=== PATIENT | female | born 1975 | race Caucasian/White ===

== ENCOUNTER → 2017-11-05 15:53 | Outpatient (CLI) | payer OTHER, SELFPAY ==
[2017-11-09 14:29] LABS: HPV Reflexed? NOT INDICATED
== END ==
PROVIDERS: Visit Provider Obstetrics & Gynecology
DX: Z12.4 Encounter for screening for malignant neoplasm of cervix (principal)
CPT/HCPCS: 88175; G0145

== ENCOUNTER → 2018-11-08 | Outpatient (CLI) | payer OTHER, SELFPAY ==
[2018-11-14 17:32] LABS: HPV Reflexed? NOT INDICATED
== END | disposition home or self-care (01) ==
LOC: LABSPEC 14:35
PROVIDERS: Visit Provider Obstetrics & Gynecology
DX: Z12.4 Encounter for screening for malignant neoplasm of cervix (principal)
CPT/HCPCS: 88175; G0145

== ENCOUNTER → 2019-06-29 08:47 | Outpatient (CLI) | payer OTHER, SELFPAY ==
--- NOTE | 2019-06-29 08:55 | RAD_ITS ---
Procedure: Fluoroscopically guided, dedicated esophagram. INDICATIONS: Dysphagia, reflux, sore throat. TECHNIQUE: The patient easily and readily swallowed effervescent crystals and various density barium contrast. Multiple spot images were obtained during the course of the real-time fluoroscopic exam. The exam is augmented with frontal and lateral cine views of the larynx/pharynx region. FINDINGS: Esophageal motility appears normal. There is no esophageal stricture, web, diverticulum or hiatal hernia. No free reflux was observed during the course of the real-time exam. The esophageal mucosal pattern appears normal. There is no intrinsic or extrinsic esophageal mass or mass effect. There is symmetric transit of the contrast bolus throughout the pharynx and hypopharynx. Small amount of residual pooling is seen in bilateral performed recesses with spontaneous clearing. The mucosal pattern appears unremarkable. There is no vestibular penetration or aspiration. RAD/Esophagus Only IMPRESSION: No fluoroscopically evident pathology. Electronically Signed: Zelalem Alvarado MD at 9:56 EST , Service support ,
== END ==
PROVIDERS: Family Provider Family Medicine; PCP Family Medicine; Referring Provider Otolaryngology Otolaryngology/Facial Plastic Surgery; Visit Provider Otolaryngology Otolaryngology/Facial Plastic Surgery
DX: R13.10 Dysphagia, unspecified (principal)
CPT/HCPCS: 74220

== ENCOUNTER → 2019-11-15 16:18 | Outpatient (CLI) | payer OTHER, SELFPAY ==
[2019-11-19 01:13] LABS: HPV Reflexed? NOT INDICATED
== END ==
PROVIDERS: PCP Family Medicine; Visit Provider Obstetrics & Gynecology
DX: Z12.4 Encounter for screening for malignant neoplasm of cervix (principal)
CPT/HCPCS: 88175; G0145

== ENCOUNTER → 2020-12-03 | Outpatient (CLI) | payer OTHER, SELFPAY ==
--- NOTE | 2020-12-03 15:30 | CER_PTH ---
PATIENT: MARA VEGA LOC: [facility] U#:[id number] AGE/SX: 45/F ROOM: RE12/03/[address]: Dr. Arnold Mancia MD : 1975 BED: DIS: 12/03/2020 SPEC #: [id number] RECD: 12/04/20 09:50 STATUS: JORDANA BABINConcepcion #: [id number] POP: 12/03/20 15:[address]: Arnold Mancia DEPT: SURGICAL PATHOLOGY RECD BY: Jerry Melgoza ENTERED: 12/04/20 10:05 SP TYPE: CERV OTHR DR: Dr. Bartolo Coronel MD Tissues: Uterine cervix, NOS Procedures: Surgery Specimen Level IV HEADER OPERATION: Cervical lesion removal 4 o?clock PRE-OP DIAGNOSIS: M99.81 TISSUE SUBMITTED: Cervical lesion 4 o?clock MICROSCOPIC DIAGNOSIS Cervical lesion, 4 o?clock, biopsy: Fragments of squamous epithelium with extensive hyperkeratosis. Negative for malignancy. See comment. SJ:bull 12/05/2020 COMMENT Clinical correlation and appropriate follow up are necessary. MICROSCOPIC DESCRIPTION Slides are reviewed. GROSS DESCRIPTION Received in fixative is one container labeled with the patient's name and designated cervical biopsy. The specimen consists of multiple irregular fragments of light coronel soft tissue that in aggregate measure 0.3 x 0.2 x 0.1 cm. The specimen is totally submitted in one cassette. / AM:bull 12/04/20 TC:5 CPT: 41135
[2020-12-06 13:01] LABS: HPV Reflexed? NOT INDICATED
== END | disposition home or self-care (01) ==
LOC: LABSPEC 12-04 09:26
PROVIDERS: PCP Family Medicine; Visit Provider Obstetrics & Gynecology
DX: M99.81 Other biomechanical lesions of cervical region (principal); Z12.4 Encounter for screening for malignant neoplasm of cervix
CPT/HCPCS: 88175; 88305; G0145

== ENCOUNTER → 2021-12-04 | Outpatient (CLI) | payer OTHER, SELFPAY ==
[2021-12-08 20:04] LABS: HPV Reflexed? NOT INDICATED
== END | disposition home or self-care (01) ==
PROVIDERS: PCP Family Medicine; Visit Provider Obstetrics & Gynecology
DX: Z12.4 Encounter for screening for malignant neoplasm of cervix (principal)
CPT/HCPCS: 88175; G0145